=== PATIENT | male | born 2000 | race Caucasian/White ===

== ENCOUNTER 2023-06-29 08:56 | Emergency (ER) | payer BC ==
[~2023-06-29] VITALS: Ht 175.3 cm; Wt 77.5 kg
[2023-06-29 12:18] LABS: BASO % 0.6 % (0.0-1.0); EOS # 0.1 10^3/uL (0.0-0.5); EOS % 1.2 % (0.0-3.0); HEMATOCRIT 47.3 % (42.0-52.0); HEMOGLOBIN 16.1 g/dl (13.5-17.5); LYMPH # 1.8 10^3/uL (1.5-5.0); MEAN CORPUSCULAR HEMOGLOBIN 29.9 pg (27.0-33.0); MEAN CORPUSCULAR VOLUME 87.8 fl (80.0-96.0); MONO # 0.4 10^3/uL (0.0-0.8); MONO % 6.1 % (2.0-8.0); NEUTROPHILS # 4.4 10^3/uL (1.5-8.5); NEUTROPHILS % 64.8 % (36.0-66.0); PLATELET COUNT, AUTOMATED 253 10^3/uL (150-450); RED BLOOD COUNT 5.39 10^6/uL (4.30-6.10); WHITE BLOOD COUNT 6.7 10^3/uL (4.0-10.0)
[2023-06-29 12:47] LABS: ALBUMIN 4.3 G/DL (3.2-5.2); ALKALINE PHOSPHATASE 59 U/L (46-116); ALT/SGPT 17 U/L (7.0-40); AST/SGOT 11 U/L (<34); BILIRUBIN,DIRECT 0.2 MG/DL (<0.4); BILIRUBIN,TOTAL 0.7 MG/DL (0.3-1.2); BLOOD UREA NITROGEN 8 MG/DL (9-23); CALCIUM LEVEL 9.4 MG/DL (8.5-10.1); CARBON DIOXIDE LEVEL 29 MMOL/L (20-31); CHLORIDE LEVEL 107 MMOL/L (98-107); CREATININE FOR GFR 0.99 MG/DL (0.70-1.30); GLOMERULAR FILTRATION RATE > 60.0 (>60); GLUCOSE, FASTING 97 MG/DL (60-100); MAGNESIUM LEVEL 2.1 MG/DL (1.8-2.4); POTASSIUM SERUM 4.4 MMOL/L (3.5-5.1); SODIUM LEVEL 140 MMOL/L (136-145); TOTAL PROTEIN 7.2 G/DL (5.7-8.2)
[2023-06-29 12:49] LABS: FOLATE 21.97 NG/ML (>5.4); THYROID STIMULATING HORMONE 2.311 uIU/ML (0.55-4.78); VITAMIN B12 LEVEL 625 PG/ML (211-911)
[2023-06-29 12:50] LABS: FREE T4 1.32 NG/DL (0.89-1.76)
[2023-06-29 13:38] VITALS: BP 130/82; TEMP 97.9; O2SAT 98
== END 2023-06-29 13:40 | disposition home or self-care (01) ==
LOC: M ED 08:56
DX: R20.2 Paresthesia of skin (principal); R00.1 Bradycardia, unspecified; I45.10 Unspecified right bundle-branch block; F41.9 Anxiety disorder, unspecified; F10.10 Alcohol abuse, uncomplicated; Z91.013 Allergy to seafood